=== PATIENT | male | born 1975 | race Caucasian/White ===

== ENCOUNTER 2019-05-18 17:23 | Emergency (ER) | payer SELFPAY ==
[2019-05-18 17:30] VITALS: BP 102/81; PULSE 95; RESP 22; TEMP 36.9; O2SAT 94
--- NOTE | 2019-05-18 17:41 | ED.GENADUL_ITS ---
Discharge Plan Disposition Patient Disposition: HOME Condition: Stable Discharge Details Chief Complaint: CVA/TIA Clinical Impression: Numbness around mouth Primary Care Provider: Reginaldo Bearden ED Provider: Nav Carlton Home Meds and New Rx's Prescriptions: No Action No Known Home Meds RF: 0 Discharge Instructions Additional Instructions: Your neurological exam was normal I suspect your numbness is being exacerbated by the tobacco use I have referred you to get set up with [facility] If you develop arm/leg weakness, vision changes, or feel more ill return to the emergency department Medical Decision Making 43 yo male who has a hx of anxiety comes in with complaints of feeling numbness and tingling of his lips and mouth for a month. Denies other weakness, vision changes, or changes in sensation. No chest pain or sob. He has no cranial nerve deficits on exam, no motor or sensation deficits and steady gait, NIH of 0 and symptoms do not seem consistent with tia/cva. He does have numerous dental caries on exam without pain and no swelling. I suspect his symptoms could be due to the caries vs chewing tobacco use. I do not feel any acute workup for this is indicated. I advised f/u with pcp if symptoms continue and return if new symptoms such as wekaness or vision changes develop Differential Diagnosis bells, dental caries, paresthesia ECG Data Attestation: I personally reviewed and interpreted this ECG (s) as follows: Prior ECG tracings: not available for review Interpretation: sinus rhythm, rate of 90, qtc 426 HPI General Mode of arrival: ambulatory . Date/Time Provider Initiated Documentation: 05/18/19 17:28 . Limitations to Documentation: no limitations . Information obtained by: patient . History of Present Illness 43 year old M presents to the emergency department with the chief complaint of mouth numbess/tingling, described as moderate, Patient started experiencing this month(s) (1) and it has been constant. No relieving factors improve symptom(s), No exacerbating factors reported . Patient did receive the following treatments prior to arrival, none Related Data Home Medications Medication Instructions Recorded Confirmed Unknown [No Known Home Meds] 05/18/19 05/18/19 Allergies Allergy/AdvReac Type Severity Reaction Status Date / Time No Known Allergies Allergy Unverified 05/18/19 17:40 General Stated Complaint: CVA/TIA SWAPNIL: 2 Review of Systems Review of Systems All systems reviewed & are unremarkable except as noted in HPI and below Constitutional Denies chills, Denies fever(s) and Denies weakness Cardiovascular Denies chest pain and Denies dyspnea Respiratory Denies cough and Denies dyspnea Gastrointestinal Denies abdominal pain, Denies nausea and Denies vomiting Musculoskeletal Denies joint swelling Neurologic Denies weakness PFSH Social History Smoking/Tobacco Use Status: Current every day Tobacco Type: smokeless tobacco Alcohol Intake: current Alcohol Intake frequency: a few times a month Drug use: Never Do you feel safe at home: Yes Do you feel safe in your relationship?: Yes Exam Const General: no acute distress Orientation: alert HENMT Head: normal to inspection Ears: external ears normal General nose exam: external nose normal Mouth: moist mucous membranes Eyes General: appearance normal, both eyes and all related structures Neck Neck: normal visual inspection Resp Effort & Inspection: normal respiratory effort and able to speak in complete sen tences Cardio Rate: regular rate Skin General skin exam: no rashes or lesions noted Neuro General: alert and oriented x3 Extrem General: normal to inspection Psych Mental Status: mental status grossly normal Course Vital Signs Temperature 36.9 C 05/18/19 17:30 Pulse 95 H 05/18/19 17:30 Respiratory Rate 05/18/19 17:30 Blood Pressure 102/81 05/18/19 17:30 Pulse Oximetry 94 L 05/18/19 17:30 Temperature 36.9 C 05/18/19 17:30 Temperature Source Skin 05/18/19 17:30 Pulse 95 H 05/18/19 17:30 Respiratory Rate 05/18/19 17:30 Blood Pressure 102/81 05/18/19 17:30 Pulse Oximetry 94 L 05/18/19 17:30 Oxygen Delivery Method Room Air 05/18/19 17:30 Oxygen Flow Rate 0 05/18/19 17:30 Pain Level 0 05/18/19 17:30
[2019-05-18 17:43] VITALS: BP 119/84; PULSE 91; RESP 22; O2SAT 100
[2019-05-18 17:49] VITALS: BP 119/84; PULSE 91; RESP 22; O2SAT 100
== END 2019-05-18 17:51 | disposition home or self-care (01) ==
PROVIDERS: Emergency Provider Emergency Medicine; PCP Physician Assistant
DX: R20.2 Paresthesia of skin (principal); F17.220 Nicotine dependence, chewing tobacco, uncomplicated; F41.9 Anxiety disorder, unspecified
CPT/HCPCS: 93005; 99284; 93010

== ENCOUNTER 2023-11-21 20:23 | Outpatient (REF) | payer SELFPAY ==
[2023-11-21 19:32] LABS: Abs Immature Grans 0.08 10^3/uL (0.0-0.06); Absolute Basophil Count 0.07 10^3/uL (0.0-0.2); Absolute Eosinophil Count 0.27 10^3/uL (0.0-0.7); Absolute Lymphocyte Count 3.43 10^3/uL (1.2-3.4); Absolute Monocyte Count 0.96 10^3/uL (0.1-0.8); Basophils % 0.6; Eosinophils % 2.3; HCT 44.9 % (40.0-50.0); HGB 14.8 g/dL (13.5-17.5); Immature Grans % 0.7; Lymphocytes % 28.8; MCH 29.2 pg (27.0-33.0); MCV 89 fL (80-95); MPV 10.2 fL (8.0-11.0); Monocytes % 8.1; Neutrophils % 59.5; Platelet Count 329 10^3/uL (130-400); RBC 5.06 10^6/uL (4.36-5.78); RDW 12.7 % (11.8-14.1); RDW-SD 41.2 fL
[2023-11-21 19:34] LABS: Absolute Neutrophil Count 7.08 10^3/uL (1.2-6.7)
[2023-11-21 20:02] LABS: ALT 47 U/L (16-63); AST 33 U/L (15-37); Albumin 3.6 g/dL (3.4-5.0); Alkaline Phosphatase 81 U/L (46-116); Anion Gap 10.9 mmol/L (3-11); BUN 12 mg/dL (7-18); Bilirubin, Total 0.2 mg/dL (0.2-1.0); CO2 24.1 mmol/L (21.0-32.0); Calcium 9.4 mg/dL (8.5-10.1); Calculated LDL 93 mg/dL (<100); Chloride 107 mmol/L (98-107); Cholesterol 161 mg/dL (<200); Estimated GFR 92.84 (mL/min/1.73m2); Glucose 99 mg/dL (74-106); HDL Cholesterol 22 mg/dL (40-60); Potassium 4.1 mmol/L (3.5-5.1); Sodium 142 mmol/L (136-145); TSH (W/Ref FT4) 1.01 uIU/mL (0.36-3.74); Total Protein 7.1 g/dL (6.4-8.2); Triglyceride 230 mg/dL (<150)
[2023-11-21 20:17] LABS: Hemoglobin A1C 5.7 % (<5.7)
== END 2023-11-21 20:24 | disposition home or self-care (01) ==
LOC: NCHCN 20:23
PROVIDERS: PCP Physician Assistant; Visit Provider Nurse Practitioner Family
DX: Z00.00 Encounter for general adult medical examination without abnormal findings (principal); Z13.0 Encounter for screening for diseases of the blood and blood-forming organs and certain disorders involving the immune mechanism; Z13.1 Encounter for screening for diabetes mellitus; Z13.220 Encounter for screening for lipoid disorders; Z13.29 Encounter for screening for other suspected endocrine disorder; Z13.228 Encounter for screening for other metabolic disorders
CPT/HCPCS: 80053; 80061; 83036; 84443; 85025

== ENCOUNTER 2024-01-23 18:00 | Outpatient (REF) | payer SELFPAY ==
[2024-01-23 18:49] LABS: HCT 47.1 % (40.0-50.0); HGB 15.6 g/dL (13.5-17.5); MCHC 33.1 % (32.0-36.0); MCV 91 fL (80-95); Platelet Count 316 10^3/uL (130-400); RDW 13.1 % (11.8-14.1); RDW-SD 42.9 fL; WBC 12.86 10^3/uL (4.4-10.8)
== END 2024-01-23 18:01 | disposition home or self-care (01) ==
LOC: NCHCN 18:00
PROVIDERS: PCP Physician Assistant; Visit Provider Nurse Practitioner Family
DX: R79.89 Other specified abnormal findings of blood chemistry (principal)
CPT/HCPCS: 85027

== ENCOUNTER 2024-02-20 18:42 | Outpatient (REF) | payer SELFPAY ==
--- NOTE | 2024-02-20 16:00 | SKI_PTH ---
PATIENT: Julio César Bender LOC: [facility] U#:[id number] AGE/SX: 48/M ROOM: RE02/20/[address]: Toña Walker : 1975 BED: DIS: 02/20/2024 SPEC #: [id number] RECD: 02/23/24 12:35 STATUS: ANDREW REQ #: [id number] TESSA: 02/20/24 16:[address]: Toña Walker DEPT: Surgical Specimen RECD BY: Sylvia Delgado ENTERED: 02/23/24 12:35 SP TYPE: LUPILLO MCGUIRE DR: Reginaldo Bearden Tissues: 1 - SKIN BIOPSY(SHAVE/PUNCH) 2 - SKIN BIOPSY(SHAVE/PUNCH) Procedures: SKIN LEVEL 4 Comments: [id number]
== END 2024-02-20 18:43 | disposition home or self-care (01) ==
LOC: NCHCN 18:42
PROVIDERS: PCP Physician Assistant; Visit Provider Nurse Practitioner Family
DX: L73.8 Other specified follicular disorders (principal)
CPT/HCPCS: 88305

== ENCOUNTER 2024-06-20 12:52 | Emergency (ER) | payer SELFPAY ==
[2024-06-20 12:55] VITALS: BP 147/92; PULSE 92; RESP 16; TEMP 36.2; O2SAT 95
--- NOTE | 2024-06-20 13:15 | DI.RAD_ITS ---
Exam(s) XR HAND LT COMPLETE EXAM: XR HAND LT COMPLETE CLINICAL HISTORY: laceration left thumb, index. TECHNIQUE: 2D digital imaging was performed. Three views. COMPARISON: No exams were available for comparison FINDINGS: BONES: No acute fracture is present. No bony destructive lesion is seen. JOINTS: No dislocation present. SOFT TISSUE: Soft tissue wound thenar eminence. IMPRESSION: No evidence of fracture or foreign body. DATA REPOSITORY: RADIATION DOSE DELIVERED:
--- NOTE | 2024-06-20 13:29 | ED.GENADUL_ITS ---
Discharge Plan Disposition Patient Disposition: Home Condition: Good Discharge Details Clinical Impression: Hand laceration, Finger numbness, Decreased range of motion of finger Primary Care Provider: Reginaldo Bearden ED Provider: Bessy Hassan Home Meds and New Rx's Prescriptions: No Action No Known Home Meds Discharge Instructions Instructions: Wound Care ED Additional Instructions: X-rays reassuring here today. No evidence to suggest fracture or dislocation. Normal alignment. I am concerned about the sensory changes as well as difficulty with range of motion and I would like for you to be evaluated by your primary care in the next 24 to 48 hours. You may need referral to orthopedics. Please keep current dressing on for the next 24 to 48 hours. He may shower after that time and clean the wound with running water but please do not soak the wound. Monitor for signs of infection including redness, warmth, drainage, increased pain, fever/chills. Please return in 1 week for reevaluation of the wound and suture removal. Please avoid activities that cause undue pressure on the wound such as heavy lifting. tetanus was updated today. Referrals: Reginaldo Bearden [Primary Care Provider] - Discharge Data Discharge Date/Time-TO BE ENTERED AT DEPARTURE: 06/20/24 15:19 HPI General Date/Time Provider Initiated Documentation: 06/20/24 12:58 . Limitations to Documentation: no limitations . Information obtained by: patient, family and RN notes reviewed . History of Present Illness 48 year old M presents to the emergency department with the chief complaint of lacerations left hand, described as moderate, Quality is described as stabbing, and is localized to the left and upper extremity. Patient reports no radiation. Patient started experiencing this minute(s) and it has been constant. No relieving factors improve symptom(s), Movement worsens symptoms . Patient notes other (numbness, decreased ROM); denies fever/chills, headaches, nausea/vomiting and rash. Patient did receive the following treatments prior to arrival, none Related Data Home Medications ?Medication ?Instructions ?Recorded ?Confirmed Unknown [No Known Home Meds] 05/18/19 06/20/24 Allergies Allergy/AdvReac Type Severity Reaction Status Date / Time No Known Allergies Allergy Verified 06/20/24 12:59 General Stated Complaint: Laceration SWAPNIL: 3 Review of Systems Constitutional Constitutional: Reports as per HPI, Denies chills and Denies fever(s) Musculoskeletal Musculoskeletal: Reports as per HPI Integumentary/Breasts Skin/Breast: Reports as per HPI Neurologic Neurologic: Reports as per HPI Exam Const General: cooperative, healthy appearing, comfortable, no acute distress and well developed Nutritional Appearance: average body habitus and well nourished Orientation: alert and awake Resp Effort & Inspection: normal respiratory effort, able to speak in complete sentences and no respiratory distress Cardio Rate: regular rate Rhythm: regular rhythm Skin Trauma: laceration Neuro General: patient alert and patient awake Cognition: normal cognition Speech: speech normal Gait: normal gait Extrem Hand/finger images: 2 1. small laceration with small, superficial flap along the palmar side. sensory deficit distal to silvia wound, intact along the ulnar side 2. curvilinear laceration, deep structures intact. Sensation intact. Decreased ROM at all joints but has some ability to resist me. Unclear what actual ROM is Course Vital Signs Vital signs: Vital Signs Temperature 36.2 C L 06/20/24 12:55 Pulse 92 H 06/20/24 12:55 Respiratory Rate 16 06/20/24 12:55 Blood Pressure 147/92 H 06/20/24 12:55 Pulse Oximetry 95 06/20/24 12:55 Temperature 36.2 C L 06/20/24 12:55 Temperature Source Temporal Artery Scan 06/20/24 12:55 Pulse 92 H 06/20/24 12:55 Respiratory Rate 16 06/20/24 12:55 Respiratory Effort Normal 06/20/24 12:59 Blood Pressure 147/92 H 06/20/24 12:55 Blood Pressure Position Sitting 06/20/24 12:55 Pulse Oximetry 95 06/20/24 12:55 Oxygen Delivery Method Room Air 06/20/24 12:55 Oxygen Flow Rate 0 06/20/24 12:55 Pain Level 6 06/20/24 12:55 Procedures Laceration Laceration 1: Site: hand Side (If applicable): left Size (cm): 4 Description: irregular Depth: simple, single layer Local anesthetic: Lidocaine 1% Amount of anesthesia used (mL): 8 Pre-repair: wound explored, irrigated extensively and deep structures intact Skin layer closed with: nylon Size (cm): 5-0 Number of sutures: 6 Technique: simple, interrupted and horizontal mattress Medical Decision Making Patient is a pleasant [id number] 48-year-old male presenting today with chief complaint of left hand laceration. He reports that about 2 hours ago he was firing his crossbow and he had his hand in the wrong place and the string cut his fingers. Suffered laceration to the left index finger as well as the base of the left thumb. Since that time, patient's been having difficulty with movement of his fingers and endorses numbness distal to the laceration along the index finger on the radial side of the hand. He denies other injury at the time of the incident. Is not up-to-date on tetanus. Reports a sensation is intact in the thumb but that his range of motion is greatly limited. On exam, patient appears to be in no acute distress. He has 2+ distal pulses. Intact capillary refill. Sensations decreased distal to the laceration which is near the PIP joint on the radial side of the index finger. He sensation is intact in the thumb but he is not able to move the thumb at all. It does appear swollen not just at the area of the laceration which is more along the inner aspect at the base of the thumb but also along the posterior and radial side. Considered potential fracture versus dislocation and will obtain x-ray. Will update tetanus. X-ray reviewed by myself. Patient does have some chronic appearing changes in the thumb, further discussion reveals the patient has had surgery on this thumb with implant placed, sounds like he had anchor placed in the thumb based on his description. I am not able to visualize any metal in the thumb but this may have been made of different material. I do not see any acute fractures. Reevaluated the patient. He continues to have movement deficits although when I put him into a certain position he is able to resist me to some degree. His sensation in the index finger also seems to be somewhat intact. Patient will require recurrent evaluation. Patient I discussed risk/benefits as well as expected procedural steps associated with an laceration repair with sutures. We discussed alternative options. Patient voiced understanding and wished to proceed. Please see procedure note. Patient tolerated this well with no adverse events. Patient was anesthetized 1% lidocaine plain. Digital block was performed in the index finger with good success. Index finger laceration is fairly small but he does have a very superficial flap along the radial side of the digit which likely will come off. I did discuss this with the patient. Flap will not be closed. However, 1 horizontal mattress suture was applied to the small laceration. Wound was explored to base in a bloodless field and no foreign body or debris noted. Even the deeper laceration does not appear to penetrate into any joint space or deeper structures. After closure, attention was turned to the laceration at the base of the thumb. No active bleeding. I am individualize fascia but deep structures do appear to be intact. Again, patient is able to resist against certain movements but overall, his movement seems to be quite limited. Unclear if this is due to pain, anxiety or true nerve or ligamentous injury. Wound was explored to base in a bloodless field with no foreign body or debris noted. Copiously irrigated once again. Closed using simple interrupted and horizontal stitches, #5 was placed in this wound. Wound was dressed. Splint will be applied to the index finger as he is having difficulty with range of motion. We discussed wound care. Encouraged that he monitor for signs symptoms of infection and when to seek care once again. Advise he should follow-up with primary care in the next few days for reevaluation of the digit and recheck of his range of motion and sensation. Tylenol and ibuprofen as needed for discomfort. Patient will return in 1 week for suture removal. All of his questions and concerns were addressed and he is agreement's plan. Quality:SDOH Health Related Social Needs: 2 No Data to Display PFSH All Active Problems (Updated 06/20/24 @ 15:10 by RAMYA Lima) Decreased range of motion of finger (Acute) Finger numbness (Acute) Hand laceration (Acute) Social History Smoking/Tobacco Use Status: Current every day Tobacco Type: smokeless tobacco Smoking risk assessment performed?: Yes Alcohol Intake: current Alcohol Intake frequency: a few times a month Drug use: Never Do you feel safe at home: Yes Do you feel safe in your relationship?: Yes
--- NOTE | 2024-06-20 13:40 | NUR.NOTE ---
left hand laceration between thumb and palm in addition to laceration to index finger from strings of crossbow. lacerations cleaned with sterile water and betadine. bleeding controlled [employer] CSMT present. limited ROM noted on assessment
[2024-06-20] MEDS: Lidocaine 1% Multi-Dose 50 ML VIAL IJ (14:31)
--- NOTE | 2024-06-20 15:09 | DI.VRAD_ITS ---
PROCEDURE INFORMATION: Exam: XR Left Hand Exam date and time: 06/20/2024 1:53 PM Age: 48 years old Clinical indication: Injury or trauma; Other: Laceration left thumb, index; Hand and finger; Index finger and thumb TECHNIQUE: Imaging protocol: Radiologic exam of the left hand. Views: 3 or more views. COMPARISON: No relevant prior studies available. FINDINGS: Bones/joints: Bone density is appropriate. Bony alignment is anatomic. No evidence for fracture. Soft tissues: There is significant soft tissue swelling at the hypo thenar eminence. IMPRESSION: No evidence for fracture. Dictated and Authenticated by: Arianna Sabillon MD. Ordering:DAPHNEY Doherty MD
== END 2024-06-20 15:19 | disposition home or self-care (01) ==
PROVIDERS: Emergency Provider Physician Assistant; PCP Nurse Practitioner Family
DX: S61.211A Laceration without foreign body of left index finger without damage to nail, initial encounter (principal); S61.112A Laceration without foreign body of left thumb with damage to nail, initial encounter; W26.8XXA Contact with other sharp object(s), not elsewhere classified, initial encounter
CPT/HCPCS: 12002; 90715; 99283; 73130; J2003